=== PATIENT | female | born 1965 | race Caucasian/White ===

== ENCOUNTER 2017-01-20 17:42 | Emergency (ER) | payer SELFPAY ==
[~2017-01-20] VITALS: Ht 154.9 cm; Wt 101.0 kg
[2017-01-20 17:54] VITALS: BP 164/91; PULSE 86; RESP 16; TEMP 97.4; O2SAT 99
[2017-01-20] MEDS ORDERED: IBUP-1129 PO (18:15)
--- NOTE | 2017-01-20 18:39 | PD ---
HPI Chief Complaint: Musculoskeletal Complaint Time Seen by Provider: 18:33 Travel History International Travel<30 days: No Contact w/Intl Traveler<30days: No Traveled to known affect area: No History of Present Illness HPI Patient comes in complaining of feeling like her right jaw has popped out of place. Patient states this occurred last night when she sat down to dinner. Patient denies any trauma. Patient states she's been taking ibuprofen and using heat with minimal relief of symptoms. Pain is worse with movement of her jaw. Pain is burning like in nature over her right TMJ and radiates superiorly. Patient denies any chest pain, shortness of breath, difficulty swallowing, fevers, or dental pain. Patient states she had waited until she was off work today before she could come to the ER. Patient teaches preschool. PFSH Past Medical History Medical History: Denies Significant Hx Diminished Hearing: No Influenza Vaccination: No ?: Not Past Surgical History Cholecystectomy: Yes Social History Alcohol Use: No Tobacco Use: No Allergies-Medications (Allergen,Severity, Reaction): Coded Allergies: Penicillins (Verified Allergy, Unknown, 01/20/17) Reported Meds & Prescriptions Reported Meds & Active Scripts Active Naprosyn (Naproxen) 500 Mg Tab 500 Mg PO Q12HR PRN Reported Motrin Ib (Ibuprofen) 200 Mg Tablet 800 Mg PO DIRECTED Review of Systems Except as stated in HPI: all other systems reviewed are Neg Physical Exam Narrative GENERAL: Well-developed, overly nourished, in no acute distress, and non-ill appearing. SKIN: Focused skin assessment warm and dry. HEAD: Atraumatic. Normocephalic. EYES: Pupils equal and round. EOMI. No scleral icterus. No injection or drainage. ENT: No nasal bleeding or discharge. Mucous membranes pink and moist. Patient reports tenderness to palpation over right TMJ. There is no crepitus. There is no cellulitis, dental abscess, or other infectious process. Uvula is midline. Tympanic membranes are pearly [place] bilaterally. NECK: Trachea midline. Supple. No nuclear rigidity. No cervical lymphadenopathy. RESPIRATORY: No accessory muscle use. No respiratory distress. MUSCULOSKELETAL: No obvious deformities. No clubbing. No cyanosis. No edema. Full range of motion. NEUROLOGICAL: Awake and alert. No obvious cranial nerve deficits. Motor grossly within normal limits. Normal speech. PSYCHIATRIC: Appropriate mood and affect; insight and judgment normal. Data Data Last Documented VS Vital Signs Date Time Temp Pulse Resp B/P (MAP) Pulse Ox O2 Delivery O2 Flow Rate FiO2 01/20/17 17:54 97.4 86 16 164/91 (115) 99 Orders Orders Mandible, Complete (Min 4vws) (01/20/17 ) Ice/Cold Pack (01/20/17 18:36) Acetamin-Hydrocod 325-5 Mg ([place] 5-325 (01/20/17 18:45) Ed Discharge Order (01/20/17 19:37) MDM Medical Decision Making Medical Screen Exam Complete: Yes Emergency Medical Condition: Yes Interpretation(s) Last Impressions Mandible X-Ray 01/20/17 0000 Signed Impressions: Service Date/Time: Friday, January 20, 2017 18:55 - CONCLUSION: 1. No acute findings. Victor Hugo Patino MD Differential Diagnosis Fracture, dislocation, TMJ syndrome, strain Narrative Course Patient in no obvious distress upon re-evaluation. All pertinent Radiology result(s) discussed with patient. Patient was asked if they wanted to speak to my attending, which the patient did not wish to do at this time. Any questions/ concerns in reference to patient diagnosis/condition discussed and clarified prior to patient's discharge. Reinforced sheer importance of close follow up with patient's primary physician or primary care clinic and/or craniofacial surgeon. Instructed patient to return to ED immediately, if symptoms return/ worsen. Patient showed understanding of above instructions. Further instructions and recommendations were detailed in discharge paperwork. Patient ambulated without difficulty out of ED at discharge. Diagnosis Primary Impression: TMJ (temporomandibular joint syndrome) Referrals: David Diamond DDS Patient Instructions: General Instructions, Temporomandibular Disorder (ED) Additional Instructions: Follow-up with your primary care physician and/or maxillofacial surgeon in 2-5 days for reevaluation. Take all medication as prescribed. Use over-the- counter Tylenol as needed for additional pain control. Follow instructions on the packaging. Do not use ibuprofen while taking medication prescribed today. Apply ice to affected area 20 minutes per hour is needed for pain. Return to the emergency department if symptoms get worse. Med/Other Pt SpecificInfo: Prescription(s) given Scripts Naproxen (Naprosyn) 500 Mg Tab 500 MG PO Q12HR Y for PAIN SCALE 1 TO 10, #14 TAB 0 Refills Prov: Augustine Posada MD 01/20/17 Disposition: 01 DISCHARGE HOME Condition: Stable Carlos Boles Jan 20, 2017 18:39
[2017-01-20] MEDS ORDERED: ACETAMINOPHEN/HYDROcodone 325 MG/5 MG TAB PO ONE (18:45)
--- NOTE | 2017-01-20 19:19 | RADRPT ---
EXAM DATE/TIME: 01/20/2017 18:55 [facility] COMPARISON: No previous studies available for comparison. INDICATIONS : Patient states right jaw popped out of place last night. Complains of pain. MEDICAL HISTORY : None. SURGICAL HISTORY : None. ENCOUNTER: Initial ACUITY: 2 days PAIN SCORE: 10/10 LOCATION: Right mandible FINDINGS: Frontal, lateral, and oblique views of the mandible were performed. No fracture is seen. The condyl ar heads and necks appear normal. No dislocation is identified. Bony mineralization is normal. CONCLUSION: 1. No acute findings. Victor Hugo Patino MD on January 20, 2017 at 19:15 Board Certified Radiologist. This report was verified electronically.
[2017-01-20] MEDS ORDERED: NAPR500 PO (19:36)
== END 2017-01-20 19:50 | disposition home or self-care (01) ==
LOC: PHEFT 17:42
DX: M26.601 Right temporomandibular joint disorder, unspecified (principal)
CPT/HCPCS: 70110; 99283